=== PATIENT | female | born 1995 | race Hispanic/Latino ===

== ENCOUNTER 2023-09-23 21:35 | Emergency (ER) | payer OTHER, SELFPAY ==
[2023-09-23] MEDS ORDERED: Ibuprofen 200 MG TAB ONE (22:14)
[2023-09-23] MEDS ORDERED: HYDROcodone/Acetaminophen 5/325 mg Tablet ONE (22:14)
== END 2023-09-23 22:45 | disposition home or self-care (01) ==
LOC: CSHERS 21:35
DX: S91.312A Laceration without foreign body, left foot, initial encounter (principal); Z55.6 Problems related to health literacy; W26.8XXA Contact with other sharp object(s), not elsewhere classified, initial encounter